=== PATIENT | male | born 1950 | race Caucasian/White ===

== ENCOUNTER 2020-11-22 11:42 | Outpatient (CLI) | payer OTHER ==
[2020-11-22 20:05] LABS: SARS-CoV-2 PCR by NAA Not Detected (NotDetected)
== END 2020-11-22 11:43 | disposition home or self-care (01) ==
LOC: CSHLAB 11:42
PROVIDERS: ATTEND Internal Medicine Gastroenterology
DX: Z20.822 Contact with and (suspected) exposure to COVID-19 (principal); K21.9 Gastro-esophageal reflux disease without esophagitis; Z12.11 Encounter for screening for malignant neoplasm of colon
CPT/HCPCS: 87635; U0003; U0005

== ENCOUNTER 2020-11-24 06:00 | Day surgery (SDC) | payer MEDICARE, OTHER ==
[2020-11-23 08:54] VITALS: BMI 19.3
[2020-11-24] MEDS ORDERED: Lidocaine 1% MPF 2 ML VIAL ONE (11:33)
[2020-11-24] MEDS ORDERED: PROPOFOL 40 ML ONE (12:14)
[2020-11-24] MEDS ORDERED: PROPOFOL 20 ML ONE (12:43)
== END 2020-11-24 23:00 | disposition home or self-care (01) ==
LOC: CSHSDC 06:00
PROVIDERS: ATTEND Internal Medicine Gastroenterology
PROC: 0D758ZZ Dilation of Esophagus, Via Natural or Artificial Opening Endoscopic (ICD-10-PCS; principal; 2020-11-24)
DX: Z12.11 Encounter for screening for malignant neoplasm of colon (principal); D12.5 Benign neoplasm of sigmoid colon; D12.3 Benign neoplasm of transverse colon; K21.9 Gastro-esophageal reflux disease without esophagitis; K44.9 Diaphragmatic hernia without obstruction or gangrene; K57.30 Diverticulosis of large intestine without perforation or abscess without bleeding
CPT/HCPCS: 88305; J2704